=== PATIENT | male | born 1935 | race Caucasian/White ===

== ENCOUNTER 2022-06-12 09:05 | Outpatient (CLI) | payer OTHER ==
[~2022-06-12 09:05] MED LIST: ALLO100T PO; FERR236T3 PO; FINA5TAB3 PO; FLUC100T41 PO; FURO-149 PO; LEVO-62 PO; LIP80 PO; METO25TA3 PO; NEU100 PO; PRED20TA PO; RIVA15TA PO; TAMS-11 PO
== END 2022-06-12 16:00 | disposition home or self-care (01) ==
LOC: SUS 09:05 → SMU 09:52 → EDSTATUS 12:00 → SUS 16:00
PROVIDERS: ATTEND Internal Medicine Critical Care Medicine
DX: J90 Pleural effusion, not elsewhere classified (principal); C83.10 Mantle cell lymphoma, unspecified site; I26.99 Other pulmonary embolism without acute cor pulmonale; J96.11 Chronic respiratory failure with hypoxia; J18.9 Pneumonia, unspecified organism; J44.9 Chronic obstructive pulmonary disease, unspecified; J84.10 Pulmonary fibrosis, unspecified
CPT/HCPCS: 32555; 71045

== ENCOUNTER 2022-06-26 08:39 | Day surgery (SDC) | payer OTHER ==
[~2022-06-26] VITALS: Ht 190.5 cm; Wt 111.1 kg
[2022-06-26] MEDS ORDERED: LIDOCAINE 2% JELLY UROJECT 10 ML MM ONE (09:31)
[2022-06-26] MEDS ORDERED: LIDOCAINE MPF 2% 20 MG/1 ML, 5 ML VIAL INH ONE ×3 (09:31→10:45)
[2022-06-26] MEDS ORDERED: LIDOCAINE 2%, 20 ML MDV ONE (10:12)
[2022-06-26] MEDS ORDERED: BENZOCAINE 20% 0.5mL UD SPRAY MM ONE (10:32)
[2022-06-26] MEDS: fentaNYL CITRATE/PF 100 MCG/2 ML AMP ONE ×3 (10:35→10:46)
[2022-06-26] MEDS: MIDAZOLAM HCL 5 MG/5 ML VIAL ONE ×2 (10:35→10:44)
--- NOTE | 2022-06-26 10:44 | NUR ---
PROVIDED HHN TO OR. HHN TX GIVEN AT OR.
[2022-06-26] MEDS ORDERED: IPRATROPIUM/ALBUTEROL SULFATE 3 ML AMPUL.NEB (DUONEB) INH ONE (12:00)
[2022-06-26] MEDS ORDERED: IPRATROPIUM/ALBUTEROL SULFATE 3 ML AMPUL.NEB (DUONEB) ONE (12:03)
[2022-06-26 18:47] VITALS: BP_SYST 100
== END 2022-06-26 13:00 | disposition home or self-care (01) ==
LOC: SDS 08:39 → SMU 08:41 → SDS 13:00
PROVIDERS: ATTEND Internal Medicine Critical Care Medicine
DX: R91.8 Other nonspecific abnormal finding of lung field (principal); J84.10 Pulmonary fibrosis, unspecified; J98.11 Atelectasis; J18.9 Pneumonia, unspecified organism; J90 Pleural effusion, not elsewhere classified; Z79.899 Other long term (current) drug therapy
CPT/HCPCS: 36415; 31625; 31624; 71045; 94640; 88108; 88160; 88305; U0003; J2001; J2250; J3010; J7120; 31622; 31623